=== PATIENT | male | born 1965 | race African-American/Black ===

== ENCOUNTER 2016-09-27 10:58 | Emergency (ER) | payer MEDICAID, OTHER ==
[~2016-09-27] VITALS: Ht 172.7 cm; Wt 83.9 kg
[2016-09-27 11:03] VITALS: BP 158/74
[2016-09-27] MEDS ORDERED: LIDOCAINE /MPF 1% VIAL 5 ML VIAL ONE (11:18)
[2016-09-27] MEDS ORDERED: AZITHROMYCIN 250 MG TABLET ONE (11:18)
[2016-09-27] MEDS ORDERED: CEFTRIAXONE 500 MG VIAL ONE (11:18)
[2016-09-27] MEDS ORDERED: AZITHROMYCIN 250 MG TABLET PO ONE (11:30)
[2016-09-27] MEDS ORDERED: CEFTRIAXONE 1 G VIAL IM ONE (11:30)
--- NOTE | 2016-09-27 11:44 | NUR ---
MEDICATED ORDERED. NO ADVERSE REACTION NOTED. PT D/C HOME. STABLE CONDITION.
== END 2016-09-27 11:51 | disposition home or self-care (01) ==
LOC: ER 11:03
DX: N34.2 Other urethritis (principal); A64 Unspecified sexually transmitted disease; F17.200 Nicotine dependence, unspecified, uncomplicated
CPT/HCPCS: 96372; 99283; A4606; J0696; J3490; Z7610

== ENCOUNTER 2017-04-17 01:11 | Emergency (ER) | payer MEDICAID, OTHER ==
[~2017-04-17] VITALS: Ht 172.7 cm; Wt 81.6 kg
[2017-04-17] MEDS ORDERED: AZITHROMYCIN 250 MG TABLET PO ONE (01:30)
[2017-04-17] MEDS ORDERED: CEFTRIAXONE 500 MG VIAL ONE (01:30)
[2017-04-17] MEDS ORDERED: CEFTRIAXONE 500 MG VIAL IM ONE (01:30)
[2017-04-17] MEDS ORDERED: LIDOCAINE /MPF 1% VIAL 5 ML VIAL ONE (01:30)
[2017-04-17] MEDS ORDERED: AZITHROMYCIN 250 MG TABLET ONE ×2 (01:30→01:48)
[2017-04-17 01:42] LABS: APPEARANCE,URINE CLEAR (CLEAR); BILIRUBIN,URINE NEGATIVE (NEGATIVE); BLOOD, URINE NEGATIVE Ery/uL (NEGATIVE); COLOR,URINE YELLOW (YELLOW); KETONES,URINE NEGATIVE (NEGATIVE); LEUKOCYTE ESTERASE ,URINE NEGATIVE (NEGATIVE); NITRITE, URINE NEGATIVE (NEGATIVE); PROTEIN,URINE NEGATIVE (NEGATIVE); UGLUCOSE NEGATIVE (NEGATIVE); UROBILINOGEN,URINE 0.2 EU/dL (0.2)
[2017-04-17 01:57] VITALS: BP 142/90
--- NOTE | 2017-04-17 01:58 | NUR ---
Patient discharged to home in stable condition. Written and verbal after care instructions given. Patient verbalizes understanding of instruction. Pt ambulated with steady gait.
== END 2017-04-17 01:58 | disposition home or self-care (01) ==
LOC: ER 01:14
DX: N34.2 Other urethritis (principal); F17.200 Nicotine dependence, unspecified, uncomplicated
CPT/HCPCS: 81000-TC; 87491; 87591; A4606; J0696; J3490; Z7610

== ENCOUNTER 2018-07-07 13:58 | Emergency (ER) | payer MEDICAID, OTHER ==
[~2018-07-07] VITALS: Ht 172.7 cm; Wt 83.0 kg
[2018-07-07] MEDS ORDERED: FLUORESCEIN SODIUM OPHTH 1 EA STRIP ONE (14:21)
--- NOTE | 2018-07-07 14:37 | NUR ---
PT WALKED INTO EMERGENCY ROOM FOR C/C RIGHT EYE PAIN DUE TO FOREIGN OBJECT SINCE THIS MORNING WILL CONTINUE TO MONITOR PT EVALUATED BY MD WILL DISCHARGE WITH [facility] AND PRESCRIPTUION
[2018-07-07 14:39] VITALS: BP 156/97
== END 2018-07-07 14:40 | disposition home or self-care (01) ==
LOC: ER 14:00
DX: S05.01XA Injury of conjunctiva and corneal abrasion without foreign body, right eye, initial encounter (principal); F17.200 Nicotine dependence, unspecified, uncomplicated; Z60.2 Problems related to living alone; X58.XXXA Exposure to other specified factors, initial encounter; Y93.01 Activity, walking, marching and hiking; Y92.89 Other specified places as the place of occurrence of the external cause; Y99.8 Other external cause status